=== PATIENT | male | born 1995 | race African-American/Black ===

== ENCOUNTER 2019-08-15 20:22 | Emergency (ER) | payer OTHER ==
[~2019-08-15] VITALS: Ht 185.4 cm; Wt 88.6 kg
[2019-08-15 20:22] VITALS: BP 141/85
[2019-08-15] MEDS ORDERED: NAPR-837 PO (22:20)
[2019-08-17 16:10] LABS: Lyme Disease IgG/IgM Antibodie <0.91 ISR (0.00-0.90); Lyme Disease IgM Ab Quantitati <0.80 index (0.00-0.79)
== END 2019-08-15 22:45 | disposition home or self-care (01) ==
LOC: M ED 20:22
DX: M25.561 Pain in right knee (principal); M25.562 Pain in left knee

== ENCOUNTER 2019-11-24 11:16 | Emergency (ER) | payer OTHER ==
[~2019-11-24] VITALS: Ht 185.4 cm; Wt 96.0 kg
[~2019-11-24 11:16] MED LIST: NAPR-837 PO
[2019-11-24 11:17] VITALS: BP 133/92
[2019-11-24] MEDS ORDERED: MELA3TAB29 PO (11:22)
[2019-11-24] MEDS ORDERED: IBUP-1022 PO (11:22)
[2019-11-24] MEDS ORDERED: OXYMETAZOLINE 0.05% NASAL SPRAY (AFRIN) ONE (12:00)
[2019-11-24] MEDS ORDERED: IBUPROFEN 800 MG TAB PO ONE (12:00)
[2019-11-24] MEDS ORDERED: ACETAMINOPHEN 500 MG TAB PO ONE (12:00)
--- NOTE | 2019-11-24 12:24 | REPVR ---
PROCEDURE INFORMATION: Exam: XR Chest, 2 Views Exam date and time: 11/24/2019 11:53 AM Age: 24 years old Clinical indication: Cough; Additional info: Congestion, cough TECHNIQUE: Imaging protocol: XR of the chest Views: 2 views. COMPARISON: No relevant prior studies available. FINDINGS: Lungs: Incidental azygos fissure. Pleural space: Unremarkable. No pleural effusion. No pneumothorax. Heart/Mediastinum: Unremarkable. No cardiomegaly. Bones/joints: Unremarkable. IMPRESSION: No acute cardiopulmonary abnormality. Electronically signed by: Pamela Ordaz On 11/24/2019 12:24:07 PM
== END 2019-11-24 12:55 | disposition home or self-care (01) ==
LOC: M ED 11:16
DX: J06.9 Acute upper respiratory infection, unspecified (principal); B34.9 Viral infection, unspecified

== ENCOUNTER 2020-02-03 19:33 | Emergency (ER) | payer OTHER ==
[~2020-02-03] VITALS: Ht 185.4 cm; Wt 97.0 kg
[~2020-02-03 19:33] MED LIST changes: +IBUP-1022 PO; +MELA3TAB29 PO
[2020-02-03 23:33] VITALS: BP 142/78
== END 2020-02-03 23:34 | disposition home or self-care (01) ==
LOC: M ED 19:33
DX: Z20.828 Contact with and (suspected) exposure to other viral communicable diseases (principal)
CPT/HCPCS: 99283; U0003

== ENCOUNTER 2020-08-15 08:08 | Emergency (ER) | payer OTHER ==
[~2020-08-15] VITALS: Ht 182.9 cm; Wt 94.1 kg
[2020-08-15 09:14] LABS: BASO # 0.1 10^3/uL (0.0-0.2); EOS # 0.2 10^3/uL (0.0-0.5); EOS % 2.8 % (0.0-3.0); HEMATOCRIT 44.6 % (42.0-52.0); HEMOGLOBIN 15.2 g/dl (13.5-17.5); LYMPH # 1.9 10^3/uL (1.5-5.0); LYMPH % 31.1 % (24.0-44.0); MEAN CORPUSCULAR HEMOGLOBIN 26.5 pg (27.0-33.0); MEAN CORPUSCULAR HGB CONC 34.1 g/dl (32.0-36.5); MEAN CORPUSCULAR VOLUME 77.7 fl (80.0-96.0); MONO # 0.7 10^3/uL (0.0-0.8); MONO % 10.8 % (2.0-8.0); NEUTROPHILS # 3.3 10^3/uL (1.5-8.5); PLATELET COUNT, AUTOMATED 314 10^3/uL (150-450); RED BLOOD COUNT 5.74 10^6/uL (4.30-6.10)
[2020-08-15 09:36] LABS: ALBUMIN 3.8 GM/DL (3.2-5.2); ALT/SGPT 38 U/L (12-78); BILIRUBIN,DIRECT 0.1 MG/DL (0.0-0.2); BILIRUBIN,TOTAL 0.3 MG/DL (0.2-1.0); BLOOD UREA NITROGEN 12 MG/DL (7-18); CALCIUM LEVEL 9.5 MG/DL (8.5-10.1); CARBON DIOXIDE LEVEL 29 MEQ/L (21-32); CHLORIDE LEVEL 105 MEQ/L (98-107); CREATININE FOR GFR 1.15 MG/DL (0.70-1.30); GLOMERULAR FILTRATION RATE > 60.0 (>60); GLUCOSE, FASTING 91 MG/DL (70-100); POTASSIUM SERUM 4.6 MEQ/L (3.5-5.1); SODIUM LEVEL 139 MEQ/L (136-145); TOTAL PROTEIN 7.7 GM/DL (6.4-8.2)
[2020-08-15 09:59] VITALS: BP 142/63
== END 2020-08-15 10:01 | disposition home or self-care (01) ==
LOC: M ED 08:08
DX: R11.2 Nausea with vomiting, unspecified (principal); F17.290 Nicotine dependence, other tobacco product, uncomplicated

== ENCOUNTER 2020-11-06 01:18 | Emergency (ER) | payer OTHER ==
[~2020-11-06] VITALS: Ht 182.9 cm; Wt 94.7 kg
[2020-11-06 01:18] VITALS: BP 127/80
== END 2020-11-06 01:54 | disposition left against medical advice (07) ==
LOC: M ED 01:18
DX: Z53.21 Procedure and treatment not carried out due to patient leaving prior to being seen by health care provider (principal)

== ENCOUNTER 2020-11-06 08:19 | Emergency (ER) | payer OTHER ==
[~2020-11-06] VITALS: Ht 182.9 cm; Wt 94.2 kg
[2020-11-06 11:07] VITALS: BP 137/83
== END 2020-11-06 11:12 | disposition home or self-care (01) ==
LOC: M ED 08:19
DX: J02.9 Acute pharyngitis, unspecified (principal)